=== PATIENT | female | born 1995 | race Caucasian/White ===

== ENCOUNTER 2020-12-24 18:52 | Emergency (ER) | payer SELFPAY ==
[~2020-12-24] VITALS: Ht 160 cm; Wt 55.8 kg
[2020-12-24 18:59] VITALS: BP 132/76
--- NOTE | 2020-12-24 19:18 | NUR ---
PT TO ER BED 2 C/O EARRING PIECE STUCK INSIDE RIGHT EAR. PATIENT BOBBED HER HEAD TO THE RIGHT AND THE EARRING PIECE CAME OUT. PATIENT CONFIRMED THAT THE EARRING PIECE THAT CAME OUT IS THE ONLY PIECE INSIDE THE EAR. PATIENT AAOX4. NO FEVER. NOOT IN DISTRESS.
--- NOTE | 2020-12-24 19:19 | NUR ---
SILVER- COLORED EARRING PIECE RETURNED TO THE PT
--- NOTE | 2020-12-24 19:22 | NUR ---
Patient discharged to home in stable condition. Written and verbal after care instructions given. Patient verbalizes understanding of instruction.
[2020-12-24] MEDS ORDERED: LIDOCAINE/PRILOCAINE (5GM) 5 GM TUBE TP ONE (19:30)
[2020-12-24] MEDS ORDERED: LIDOCAINE 0.5%-EPI 1:200,000 50 ML VIAL TP ONE (19:30)
== END 2020-12-24 19:59 | disposition home or self-care (01) ==
LOC: ER 18:52
DX: T16.1XXA Foreign body in right ear, initial encounter (principal); F12.90 Cannabis use, unspecified, uncomplicated; X58.XXXA Exposure to other specified factors, initial encounter; Y93.89 Activity, other specified; Y92.89 Other specified places as the place of occurrence of the external cause; Y99.8 Other external cause status